=== PATIENT | female | born 1985 | race Caucasian/White ===

== ENCOUNTER 2018-07-15 08:00 | Inpatient (IN) ==
[2018-07-15] MEDS ORDERED: Famotidine 20 MG/2 ML VIAL IVP PRN (08:33)
[2018-07-15] MEDS ORDERED: *HR* Nalbuphine 10 MG/ML AMPUL IVP PRN (08:33)
[2018-07-15] MEDS ORDERED: Metoclopramide 10 MG/2 ML VIAL IVP PRN (08:33)
[2018-07-15] MEDS ORDERED: Ondansetron 4 MG/2 ML VIAL IVP PRN (08:33)
[2018-07-15] MEDS ORDERED: Ringers Solution, Lactated 1,000 ML IVC SCH (08:45)
[2018-07-15] MEDS ORDERED: miSOPROStol 25 MCG TABLET PO ONE (09:30)
--- NOTE | 2018-07-15 09:33 | Event Note ---
Date of Encounter: 07/15/18 Time of Encounter: 09:31 Cervical sanders balloon placed for induction after procedure discussed with patient and she agrees to proceed. 80mL instilled into uterine balloon and 60 mL instilled into vaginal balloon. Patient tolerated with minimal discomfort. Dr. Butler made aware of intervention.
[2018-07-15 09:34] LABS: Basophils # 0.1 K/mcL (0.0-0.2); Basophils % 0.4 %; Eosinophils # 0.1 K/mcL (0.0-0.6); Eosinophils % 0.6 %; Hematocrit 34.2 % (35.3-44.9); Hemoglobin 11.3 g/dL (11.5-15.4); Immature Granulocytes % 1.5 % (0-4); Lymphocytes # 1.5 K/mcL (0.6-4.6); Mean Corpuscular Hemoglobin 30.2 pg (28.0-33.3); Mean Corpuscular Volume 91.4 fL (83.0-100.0); Mean Platelet Volume 9.5 fL (9.4-12.4); Monocytes # 0.5 K/mcL (0.0-1.3); Monocytes % 3.8 %; Platelet Count 303 K/mcL (140-400); Red Blood Count 3.74 M/mcL (3.82-4.97); Red Cell Distribution Width 12.8 % (11.5-14.5); Segmented Neutrophils % 81.7 %
[2018-07-15 09:37] LABS: Amphetamine Screen,Urine Negative ng/mL (Cutoff=1000); Barbiturate Screen,Urine Negative ng/mL (Cutoff=200); Benzodiazepines Screen,Urine Negative ng/mL (Cutoff=200); Cannabinoid Screen,Urine Negative ng/mL (Cutoff = 50); Cocaine Screen,Urine Negative ng/mL (Cutoff= 300); Opiate Screen,Urine Negative ng/mL (Cutoff=300); Phencyclidine Screen,Urine Negative ng/mL (Cutoff=25)
--- NOTE | 2018-07-15 10:43 | Anesthesia Evaluation PreOp ---
Date of Encounter: 07/15/18 Time of Encounter: 10:40 - Past History Planned Operation: JENNA Cardiac History: Denies any Significant Hx Pulmonary History: Denies Any Significant HX HYDRO PNEUMATIC TESTER History: Denies Any Significant HX Other Medical History: Renal (one kidney--all renal function tests WNL) Anesthesia History: No Prior Anesthetic Complications (CLEx1--no complications; denies personal and family h/o GA complications), Past Anesthesia (donor nephrectomy) : Yes Alcohol Use: none Drug use: none Medications and Allergies Ondansetron [Zofran ODT] 4 mg ORAL RINSE DAILY 07/15/18 [History] Vitamin Tablet 1 / PO DAILY 07/15/18 [History] Allergy/AdvReac Type Severity Reaction Status Date / Time oxycodone [Oxycodone] Allergy Nausea Verified 12/27/17 08:23 Cefaclor [From Ceclor] AdvReac Gastrointestinal Verified 07/15/18 09:21 Upset ibuprofen AdvReac Gastrointestinal Verified 07/15/18 09:21 Upset - Meds/Allergy Pre-op Review Medications Reviewed: Yes Allergies Reviewed: Yes Beta Blockers on Current Med List: No Anesthesia Results - Labs 07/15/18 09:00 Anesthesia Exam 126/80, HR 113 NPO (# of Hours): >3hrs Pain Scale: 5 Pain Scale Used: Gonzales-Zhao (Faces) - HEENT Pupil (Motor): Pupils equal Mallampati: II Teeth: Normal Oral Opening: Greater than 3 - HYDRO PNEUMATIC TESTER LOC: Oriented HYDRO PNEUMATIC TESTER Motor: Normal RUE, Normal LUE, Normal RLE, Normal LLE, Normal Face HYDRO PNEUMATIC TESTER Sensory: Normal: RUE, LUE, RLE, LLE, Face - Cardiac Rhythm: Regular Murmur: None - Pulmonary Breath Sounds: bilateral Clear Respiratory Effort: Symmetrical Anesthesia Assess/Plan ASA Score: 2 Level of consciousness: Cooperative, Oriented, Tranquil Anesthetic Plan: Epidural Autologous Blood: No Monitoring Plan: Standard Monitors Recovery Plan: Other
[2018-07-15] MEDS ORDERED: Bupivacaine-MPF 0.25% 10 ML VIAL EP ONE (10:44)
[2018-07-15] MEDS ORDERED: *HR* FentaNYL (PF) 100 MCG/2 ML VIAL EP ONE (10:44)
[2018-07-15] MEDS ORDERED: Epidural Premix (fent/bupiv) 110 ML EP SCH (10:45)
[2018-07-15] MEDS ORDERED: *HR* FentaNYL (PF) 100 MCG/2 ML VIAL ONE (10:53)
[2018-07-15] MEDS ORDERED: Lidocaine -MPF 1% 5 ML AMPUL ONE (10:53)
[2018-07-15] MEDS ORDERED: Bupivacaine-MPF 0.25% 10 ML VIAL ONE (10:53)
--- NOTE | 2018-07-15 13:56 | OB/GYN History & Physical ---
Date of Encounter: 07/15/18 Time of Encounter: 13:53 Assessment and Plan (1) 39 weeks gestation of Current visit: Yes Status: Acute (2) Elective induction of labor planned Current visit: Yes Status: Acute History of Present Illness Chief complaint: induction HPI: Ms. Beaulieu is a 33 year old female scheduled for induction of labor at 39 weeks gestation. She is doing well. She is having no completes of any kind today. [place] induction was started on this patient. She is having no complaints of any kind today. She has allergies to ibuprofen and Ceclor. Percocet and oxycodone make her vomit. She has no chronic medical conditions. Surgical history includes a nephrectomy as patient was a kidney donor and tonsillectomy. She has no history of abnormal Pap smears, STDs or pelvic infections. Socially she denies tobacco, alcohol, drug use. Obstetric history significant for one vaginal delivery uncomplicated. Family history significant for diabetes and hypertension. Past Med Surg Social Fam HX - Past Medical History Medical history: no medical history Psychiatric history: no psych history - Past Surgical History Additional surgical history: kidney donation - Social History Smoking Status: Never smoker Smokeless Tobacco Status: No Alcohol use: none Drug use: none - Family History Mother Living Status: Still Living Hx Family Cardiac Disorders: Yes (hypertension) Hx Family Respiratory Disorders: No Hx Family Cancer: No Hx Family GI Disorders: No Hx Family Genitourinary Disorders: No Hx Family Endocrine Disorder: No Hx Family Musculoskeletal Disorders: No Hx Family Neuromuscular Disorders: No Hx Family Neurologic Disorders: No Hx Family HEENT Disorders: No Hx Family Autoimmune Disorders: No Hx Family Reproductive Disorders: No Hx Family Psychosocial Disorders: No Hx Family Medical Disorders: No Obstetrical History - Pregnancies : 2 : 1 Livin Medications and Allergies Ondansetron [Zofran ODT] 4 mg ORAL RINSE DAILY 07/15/18 [History] Vitamin Tablet 1 / PO DAILY 07/15/18 [History] Allergy/AdvReac Type Severity Reaction Status Date / Time oxycodone [Oxycodone] Allergy Nausea Verified 12/27/17 08:23 Cefaclor [From Ceclor] AdvReac Gastrointestinal Verified 07/15/18 09:21 Upset ibuprofen AdvReac Gastrointestinal Verified 07/15/18 09:21 Upset Review of System OB All systems PM: reviewed and no additional remarkable complaints except as stated Exam - Constitutional Constitutional: well developed, well nourished, no acute distress, average body habitus - HEENT HEENT: EOMI, PERRL - Neck Neck exam: full ROM - Lungs Respiratory exam: CTAB - Cardiovascular Cardiovascular exam: RRR - Abdomen Abdomen: Present: bowel sounds normal, gravid, non tender - Extremities Extremities exam: full ROM, normal inspection - Vagina Vagina: Present: normal moisture - Cervix Dilation: 8 Effacement: 80 Station: -2 - Uterus Uterus exam: Present: normal size, enlarged Results Result Diagrams: 07/15/18 09:00 Abnormal lab results WBC 12.3 K/mcL (4.3-11.1) H 07/15/18 09:00 RBC 3.74 M/mcL (3.82-4.97) L 07/15/18 09:00 Hgb 11.3 g/dL (11.5-15.4) L 07/15/18 09:00 Hct 34.2 % (35.3-44.9) L 07/15/18 09:00 Neutrophils # 10.0 K/mcL (1.6-8.9) H 07/15/18 09:00 All other labs normal. - VTE Reasons for not Prescribing Prophylaxis: Treatment not Indicated - Low risk for VTE
--- NOTE | 2018-07-15 14:36 | Anesthesia Procedures ---
Addendum entered and electronically signed by Trever Milton CRNA 07/15/18 17:13: Delivery Date: 07/15/18 Delivery Time: 16:40 Original Note: Date of Encounter: 07/15/18 Time of Encounter: 14:34 Procedures: Anesthesia - Epidural/Spinal Patient ID/Chart reviewed: Yes Patient examined: Yes OB Eval: Gestational age: 39 weeks 0 days OB Eval: : 2 OB Eval: Hx Para: 1 OB Eval: Dilated at (cm): 8 OB Eval: Contractions: Non-stressed pattern Consent Obtained: Yes Supplemental Oxygen: None/Room Air Site Prep: Aseptic Technique, Sterile prep and drape, Povidone-Iodine 1% Patient position: upright Local Anesthetic: Lidocaine 1% Amount of Local Anesthetic used: 3 Touhy Needle Gauge: 18 Touhy Needle Depth (cm): 5 Catheter Depth at Skin (cm): 10 Test Dose (1.5% Lido + Epi): Volume given (mls): 5 Test Dose Result: Negative Loading Dose Administered: Thru Catheter Infusion Med: 0.125% Bupivacaine w/ 2 mcg/ml Fentanyl Infusion Rate (mls/hr): 12 (w/ demand bolus of 5mL q20min PRN) Catheter Secured in Place: Tegaderm, Tape Interspace Used: L3-L4 Loss of Resistance (JACQUELINE): Yes Blood: No CSF: No Paresthesia: No Procedure: successful on 1st attempt; patient tolerated procedure well; VSS Vitals + FHT's: see Marlen RN's electronic records for VS entry
[2018-07-15] MEDS ORDERED: Oxytocin 20 units/ LR 1000 mL 20 UNIT/1,000 ML BAG IVC ONE ×2 (14:37→18:41)
--- NOTE | 2018-07-15 15:30 | Event Note ---
Date of Encounter: 07/15/18 Time of Encounter: 15:29 Patient doing well. Now has epidural. Very comfortable. Contractions every 2- 4 minutes. Sterile vaginal exam 9 cm/90% effaced, -1 station. Bulging bag of water noted. Artificial rupture membranes performed with clear fluid being noted. Category 1 tracing. Expectant management.
--- NOTE | 2018-07-15 17:07 | OB/GYN Procedure Note ---
Delivery - Delivery Date: 07/15/18 Provider: Hussain Butler Intrapartum events: none Delivery induction: sanders, misoprostol Delivery augmentation: rupture of membranes Delivery monitor: external FHT, external uterine Anesthesia: epidural Quantitated Blood Loss: 300 - Infant (s) A Infant Delivery Date: 07/15/18 Delivery Time: 16:40 Presentation: vertex Position: OA Route of delivery: Gender: Female Viability: Viable Pounds: 6 Ounces: 5 Weight Gram: 2865 kg at 1 minute: 8 at 5 mins: 9 Shoulder Dystocia: not encountered Specimens collected: cord blood Placenta: spontaneous Cord: 3 umbilical vessels - Repair Episiotomy: none Laceration Description: Perineal - 2nd Degree - Complications Delivery complications: none - Disposition Mom disposition: stable in LDR [place] disposition: stable in LDR - Comments Comments: This patient progressed rapidly to complete and pushing and had a spontaneous vaginal delivery of a female over an intact perineum. Infant's head was in the perineum with 2 pushes. The rest of the was then delivered with 1 push. cried immediately upon delivery. Infant was passed immediately to nursing in attendance. The cord was clamped cut after cord stopped pulsating. Cord blood was obtained. The placenta was delivered spontaneously and intact. There are no cervical, vaginal, periurethral lacerations noted. There is a second-degree perineal laceration repaired with 3-0 Vicryl suture in usual fashion. Patient delivered a female infant weight was 6 lbs. 5 oz. with Apgars of 8 at 1 minute and 9 at 5 minutes. Estimated blood loss 300 mL.
[2018-07-15] MEDS ORDERED: Rho Immune Globulin 1,500 UNIT SYRINGE IM ONE (20:02)
[2018-07-15] MEDS ORDERED: Measles/Mumps/Rubella Vacc 0.5 ML VIAL SQ PRN (20:02)
[2018-07-15] MEDS ORDERED: Oxytocin 20 units/ LR 1000 mL 20 UNIT/1,000 ML BAG IVC SCH (20:02)
[2018-07-15] MEDS: Acetaminophen 325 MG TABLET PO PRN (20:16)
[2018-07-16 01:57] LABS: Basophils # 0.1 K/mcL (0.0-0.2); Basophils % 0.4 %; Eosinophils # 0.1 K/mcL (0.0-0.6); Eosinophils % 0.5 %; Hematocrit 29.3 % (35.3-44.9); Immature Granulocytes % 0.7 % (0-4); Lymphocytes # 1.9 K/mcL (0.6-4.6); Lymphocytes % 12.9 %; Mean Corpuscular HGB Conc 34.1 g/dL (31.6-35.5); Mean Corpuscular Hemoglobin 30.7 pg (28.0-33.3); Mean Corpuscular Volume 89.9 fL (83.0-100.0); Mean Platelet Volume 9.5 fL (9.4-12.4); Monocytes # 0.9 K/mcL (0.0-1.3); Monocytes % 6.2 %; Platelet Count 223 K/mcL (140-400); Red Blood Count 3.26 M/mcL (3.82-4.97); Red Cell Distribution Width 12.8 % (11.5-14.5); Segmented Neutrophils % 79.3 %
[2018-07-16] MEDS: Acetaminophen 325 MG TABLET PO PRN ×2 (05:07→10:57)
[2018-07-16] MEDS ORDERED: Prenatal Vit/FA 1 EACH TABLET PO SCH (09:00)
--- NOTE | 2018-07-16 09:49 | Discharge Summary ---
Date of Encounter: 07/16/18 Time of Encounter: 11:15 - Discharge Diagnosis (1) Vaginal delivery Priority: Primary Status: Acute Comments: Pt meeting all milestones. She desires discharge home today. (2) Breast feeding status of mother Priority: Secondary Status: Acute Comments: well established. Rx given for breast pump. - Discharge Medications Prescriptions: New Docusate [Colace] 100 mg PO BID #30 capsule Acetaminophen [Tylenol] 650 mg PO Q6HR PRN #30 tablet PRN Reason: Mild Pain Continue Vitamin Tablet 1 / PO DAILY Discontinued Ondansetron [Zofran ODT] 4 mg ORAL RINSE DAILY Home Medications: Vitamin Tablet 1 / PO DAILY 07/15/18 [History] Acetaminophen [Tylenol] 650 mg PO Q6HR PRN #30 tablet 07/16/18 [Rx] Breast Pump [BREAST PUMP] 1 each .ROUTE AD #1 each 07/16/18 [Rx] Docusate [Colace] 100 mg PO BID #30 capsule 07/16/18 [Rx] Allergies/Adverse Reactions: Allergy/AdvReac Type Severity Reaction Status Date / Time oxycodone [Oxycodone] Allergy Nausea Verified 12/27/17 08:23 Cefaclor [From Ceclor] AdvReac Gastrointestinal Verified 07/15/18 09:21 Upset ibuprofen AdvReac Gastrointestinal Verified 07/15/18 09:21 Upset Data Procedures and tests throughout hospitalization: Laboratory Tests 07/15/18 07/15/18 07/16/18 09:00 09:00 01:33 WBC 12.3 H 15.1 H RBC 3.74 L 3.26 L Hgb 11.3 L 10.0 L Hct 34.2 L 29.3 L MCV 91.4 89.9 MCH 30.2 30.7 MCHC 33.0 34.1 RDW 12.8 12.8 Plt Count 303 223 MPV 9.5 9.5 Immature Gran % 1.5 0.7 Seg Neutrophils % 81.7 79.3 Lymphocytes % 12.0 12.9 Monocytes % 3.8 6.2 Eosinophils % 0.6 0.5 Basophils % 0.4 0.4 Neutrophils # 10.0 H 12.0 H Lymphocytes # 1.5 1.9 Monocytes # 0.5 0.9 Eosinophils # 0.1 0.1 Basophils # 0.1 0.1 Urine Opiates Screen Negative Ur Barbiturates Screen Negative Ur Phencyclidine Scrn Negative Ur Amphetamines Screen Negative U Benzodiazepines Scrn Negative Urine Cocaine Screen Negative U Marijuana (THC) Screen Negative Ur Drug Screen Interp See Below Labs on day of discharge: Labs from last 24 hours 07/16/18 01:33 WBC 15.1 H RBC 3.26 L Hgb 10.0 L Hct 29.3 L MCV 89.9 MCH 30.7 MCHC 34.1 RDW 12.8 Plt Count 223 MPV 9.5 Immature Gran % 0.7 Seg Neutrophils % 79.3 Lymphocytes % 12.9 Monocytes % 6.2 Eosinophils % 0.5 Basophils % 0.4 Neutrophils # 12.0 H Lymphocytes # 1.9 Monocytes # 0.9 Eosinophils # 0.1 Basophils # 0.1 Date of admission: 07/15/18 08:09 Primary care physician: PCP VERÓNICA Consults: 07/15/18 20:02 Consult to [facility] [CONS] Routine Comment: Vaginal delivery, consult needed Discharging clinician: Dinorah Silvestre Anticipated date of discharge: 07/16/18 - Patient Status Disposition: Home, Self-Care Condition: Good Overall status at discharge: patient is progressing back to baseline - Discharge Instructions Follow Up With: NONE,PCP [Primary Care Provider] - Hussain Butler MD [Partnered Physician] - - Diet and Activity Activity: increase activity as tolerated Diet: regular diet Hospital Course Reason for admission: induction of labor Delivery: Episiotomy: none Laceration: 2nd degree Other procedures: none complications: none Discharge diagnosis: IUP at term delivered [place] baby: female Hospital course: - Delivery Date: 07/15/18 Provider: Hussain Butler Intrapartum events: none Delivery induction: sanders, misoprostol Delivery augmentation: rupture of membranes Delivery monitor: external FHT, external uterine Anesthesia: epidural Quantitated Blood Loss: 300 - Infant (s) Infant A Infant Delivery Date: 07/15/18 Infant Delivery Time: 16:40 Presentation: vertex Position: OA Route of delivery: Gender: Female Viability: Viable Pounds: 6 Ounces: 5 Weight Gram: 2865 kg at 1 minute: 8 at 5 mins: 9 Shoulder Dystocia: not encountered Specimens collected: cord blood Placenta: spontaneous Cord: 3 umbilical vessels - Repair Episiotomy: none Laceration Description: Perineal - 2nd Degree - Complications Delivery complications: none - Disposition Mom disposition: home PPD1 disposition: home with mother, Time Attestation: Total time spent providing and/or coordinating discharge services: Time Spent: Less than 30 minutes Exam - Constitutional Vitals: Temp Pulse Resp BP Pulse Ox 98.2 F 82 16 116/87 97 07/16/18 08:52 07/16/18 08:52 07/16/18 08:52 07/16/18 08:52 07/16/18 08:52 General appearance IM: A&O X 3 - Respiratory Respiratory exam: Present: CTAB - Cardiovascular Cardiovascular exam IM: Present: RRR - GI/Abdominal GI/Abdominal exam IM: soft - Uterine Tone: Firm Uterus Position: 2 Fingers Below Umbilicus - Extremities Exam Extremities exam IM: Present: normal inspection, pedal edema (mild bilat) - Neurological Exam Neurological exam: normal gait, oriented X3 - Psychiatric Additional comments: reports good mood, declines contraception
[2018-07-16] MEDS ORDERED: Rho Immune Globulin 1,500 UNIT SYRINGE IM ONE (13:10)
[2018-07-16 16:14] VITALS: BP 93/53
== END 2018-07-16 19:46 | disposition home or self-care (01) | DRG 807 ==
LOC: 1NENULAB 08:09 → 1NENUOBS 19:57
PROVIDERS: ADMIT Obstetrics & Gynecology; ATTEND Obstetrics & Gynecology